=== PATIENT | male | born 1965 | race Caucasian/White ===

== ENCOUNTER 2020-04-27 16:06 | Inpatient (IN) | payer MEDICARE, MEDICAID ==
[~2020-04-27] VITALS: Ht 182.9 cm; Wt 79.8 kg
[~2020-04-27 16:06] MED LIST: ARIP5TAB8 PO; ASEN5TAB6 SL; DOCU-119 PO; ESOM40CA PO; FLUV50 PO; PSYL3.4P5 PO; TIOT185 IH; VITE400 PO
[2020-04-27] MEDS ORDERED: AMLO-258 PO (16:47)
[2020-04-27] MEDS ORDERED: HYDR-2924 PO (16:47)
[2020-04-27] MEDS ORDERED: CARV12 PO (16:47)
[2020-04-27] MEDS ORDERED: PANT-31 PO (16:47)
[2020-04-27] MEDS ORDERED: CLON0.2T PO (16:47)
[2020-04-27] MEDS ORDERED: LISI-662 PO (16:47)
[2020-04-27] MEDS ORDERED: ATOR10TA84 PO (16:47)
[2020-04-27 16:51] LABS: EOSINOPHILS % (AUTO) 2.8 % (1.0-6.0); LYMPHOCYTES # (AUTO) 1.4 K/uL (1.0-4.8); LYMPHOCYTES % (AUTO) 26.7 % (22.0-44.0); MEAN CORPUSCULAR HEMOGLOBIN 28.6 pg (26.0-34.0); MEAN CORPUSCULAR HGB CONC 33.3 G/dL (31.0-37.0); MEAN CORPUSCULAR VOLUME 86 fL (80-100); MONOCYTES # (AUTO) 0.5 K/uL (0.1-1.0); MONOCYTES % (AUTO) 9.7 % (2.0-9.0); NEUTROPHILS # (AUTO) 3.2 K/uL (1.8-7.7); NEUTROPHILS % (AUTO) 59.8 % (40.0-70.0); PLATELET COUNT (AUTO) 314 K/uL (150-450); RED CELL DISTRIBUTION WIDTH 16.3 % (11.5-14.5)
[2020-04-27 17:22] LABS: AMPHET/METH SCREEN,URINE NEGATIVE (NEGATIVE); BARBITURATE SCREEN, URINE NEGATIVE (NEGATIVE); BENZODIAZEPINES SCREEN,URINE NEGATIVE (NEGATIVE); CANNABINOID SCREEN,URINE NEGATIVE (NEGATIVE); COCAINE SCREEN,URINE NEGATIVE (NEGATIVE); METHADONE SCREEN, URINE NEGATIVE (NEGATIVE); OPIATE SCREEN,URINE NEGATIVE (NEGATIVE)
[2020-04-27 17:23] LABS: PHENCYCLIDINE SCREEN,URINE NEGATIVE (NEGATIVE)
[2020-04-27 17:36] LABS: ANION GAP 11 mmol/L (8-16); CALCIUM, TOTAL 9.8 mg/dL (8.8-10.5); CARBON DIOXIDE 27 mmol/L (22-29); CHLORIDE 98 mmol/L (98-107); CREATININE 0.99 mg/dL (0.60-1.30); GLOMERULAR FILTR. RATE CALC > 60 mL/min (>60); GLUCOSE,RANDOM 97 mg/dL (70-110); POTASSIUM 4.3 mmol/L (3.5-5.1); SODIUM SERUM 136 mmol/L (136-145); UREA NITROGEN, BLOOD 19 mg/dL (7-18)
[2020-04-27 17:43] LABS: ALANINE AMINOTRANSFERASE 25 U/L (12-78); ALBUMIN 4.4 g/dL (3.4-5.0); ALKALINE PHOSPHATASE 66 U/L (46-116); ASPARTATE AMINOTRANSFERASE 13 U/L (15-37); BILIRUBIN,TOTAL 0.5 mg/dL (0.1-1.0); TOTAL PROTEIN, SERUM 7.3 g/dL (6.4-8.2)
[2020-04-27] MEDS ORDERED: PSYL283P35 PO (20:13)
[2020-04-27] MEDS ORDERED: ZOLPIDEM TARTRATE 10 MG TABLET PO PRN (20:15)
[2020-04-27] MEDS ORDERED: HALOPERIDOL 5 MG TABLET PO PRN (20:15)
[2020-04-27 20:40] LABS: COVID AG,FIA SOURCE NASAL SWAB
[2020-04-27] MEDS: LORazepam 2 MG TABLET PO PRN (21:59)
[2020-04-28 06:28] LABS: CHOL/HDL RATIO 2.2 (4.2-7.3); CHOLESTEROL 139 mg/dL (131-200); HDL CHOLESTEROL 62 mg/dL (40-60); LDL CHOL (CALC.) 67 mg/dL (0-130); TRIGLYCERIDES 50 mg/dL (15-150)
[2020-04-28 06:46] LABS: APPEARANCE,URINE CLEAR (CLEAR); BILIRUBIN,URINE NEGATIVE (NEGATIVE); GLUCOSE, URINE (UA) NEGATIVE (NEGATIVE); KETONES,URINE NEGATIVE (NEGATIVE); LEUKOCYTE ESTERASE ,URINE NEGATIVE (NEGATIVE); NITRATE,URINE NEGATIVE (NEGATIVE); OCCULT BLOOD,URINE NEGATIVE (NEGATIVE); PROTEIN,URINE NEGATIVE (NEGATIVE)
[2020-04-28 11:40] VITALS: BP 145/105
[2020-04-28] MEDS ORDERED: PNEUMOCOCCAL VACCINE POLYVALENT 0.5 ML VIAL [PPSV23] IM ONE (11:45)
[2020-04-28] MEDS ORDERED: INFLUENZA VIRUS VACCINE QVS 2020-21 (6MO+)/PF 60 MCG/0.5 ML SYRINGE IM ONE (11:45)
[2020-04-28] MEDS: ATORVASTATIN CALCIUM 10 MG TABLET PO SCH (14:11)
[2020-04-28] MEDS: AmLODIPine BESYLATE 10 MG TABLET PO SCH (14:12)
[2020-04-28] MEDS: LISINOPRIL 20 MG TABLET PO SCH (14:12)
[2020-04-28 15:00] VITALS: BP 155/85
[2020-04-28 16:12] VITALS: BP 141/84
[2020-04-28] MEDS: CARVEDILOL 12.5 MG TABLET PO SCH (17:00)
[2020-04-29 01:31] VITALS: BP 135/82
[2020-04-29] MEDS: PANTOPRAZOLE SODIUM 40 MG DR TABLET PO SCH ×2 (06:35→09:59)
[2020-04-29 08:45] VITALS: BP 124/77
[2020-04-29] MEDS: LISINOPRIL 20 MG TABLET PO SCH ×2 (09:30→09:58)
[2020-04-29] MEDS: CARVEDILOL 12.5 MG TABLET PO SCH ×2 (09:30→09:59)
[2020-04-29] MEDS: ATORVASTATIN CALCIUM 10 MG TABLET PO SCH ×2 (09:30→09:58)
[2020-04-29] MEDS: AmLODIPine BESYLATE 10 MG TABLET PO SCH (09:58)
[2020-04-29] MEDS: PALIPERIDONE 3 MG ER TABLET PO SCH (12:00)
[2020-04-29] MEDS: ARIPiprazole 10 MG TABLET PO SCH (12:00)
[2020-04-29 16:38] VITALS: BP 125/81
[2020-04-30 03:20] VITALS: BP 121/68
[2020-04-30 08:40] VITALS: BP 125/86
[2020-04-30] MEDS: ARIPiprazole 10 MG TABLET PO SCH (09:32)
[2020-04-30] MEDS: CARVEDILOL 12.5 MG TABLET PO SCH ×2 (09:33→16:57)
[2020-04-30] MEDS: AmLODIPine BESYLATE 10 MG TABLET PO SCH (09:33)
[2020-04-30] MEDS: PALIPERIDONE 3 MG ER TABLET PO SCH (09:33)
[2020-04-30 17:11] VITALS: BP 125/70
[2020-05-01 00:30] VITALS: BP 130/77
[2020-05-01] MEDS: PANTOPRAZOLE SODIUM 40 MG DR TABLET PO SCH (06:41)
[2020-05-01] MEDS: ATORVASTATIN CALCIUM 10 MG TABLET PO SCH (08:50)
[2020-05-01] MEDS: ARIPiprazole 10 MG TABLET PO SCH (08:50)
[2020-05-01] MEDS: LISINOPRIL 20 MG TABLET PO SCH (08:50)
[2020-05-01 08:51] VITALS: BP 145/97
[2020-05-01] MEDS: AmLODIPine BESYLATE 10 MG TABLET PO SCH (08:51)
[2020-05-01] MEDS: CARVEDILOL 12.5 MG TABLET PO SCH ×2 (08:55→17:15)
[2020-05-01] MEDS: PALIPERIDONE 3 MG ER TABLET PO SCH (08:56)
[2020-05-01 16:12] VITALS: BP 130/65
[2020-05-01] MEDS: MAGNESIUM HYDROXIDE SUSPENSION 30 ML UDCUP PO PRN (21:15)
[2020-05-02 06:00] VITALS: BP 125/87
[2020-05-02] MEDS: PANTOPRAZOLE SODIUM 40 MG DR TABLET PO SCH (06:37)
[2020-05-02] MEDS: PALIPERIDONE 3 MG ER TABLET PO SCH (09:04)
[2020-05-02] MEDS: ATORVASTATIN CALCIUM 10 MG TABLET PO SCH (09:04)
[2020-05-02] MEDS: ARIPiprazole 10 MG TABLET PO SCH (09:04)
[2020-05-02] MEDS: AmLODIPine BESYLATE 10 MG TABLET PO SCH (09:04)
[2020-05-02] MEDS: CARVEDILOL 12.5 MG TABLET PO SCH ×2 (09:04→16:27)
[2020-05-02] MEDS: LISINOPRIL 20 MG TABLET PO SCH (09:05)
[2020-05-02 10:06] VITALS: BP 115/77
[2020-05-02 16:00] VITALS: BP 137/70
[2020-05-02 17:00] VITALS: BP 137/70
[2020-05-03] MEDS: MAGNESIUM HYDROXIDE SUSPENSION 30 ML UDCUP PO PRN (00:09)
[2020-05-03 02:34] VITALS: BP 117/73
[2020-05-03] MEDS: PANTOPRAZOLE SODIUM 40 MG DR TABLET PO SCH (07:02)
[2020-05-03] MEDS: LISINOPRIL 20 MG TABLET PO SCH (08:36)
[2020-05-03] MEDS: AmLODIPine BESYLATE 10 MG TABLET PO SCH (08:36)
[2020-05-03] MEDS: ARIPiprazole 10 MG TABLET PO SCH (08:36)
[2020-05-03] MEDS: ATORVASTATIN CALCIUM 10 MG TABLET PO SCH (08:36)
[2020-05-03] MEDS: CARVEDILOL 12.5 MG TABLET PO SCH ×2 (08:37→16:55)
[2020-05-03] MEDS: PALIPERIDONE 3 MG ER TABLET PO SCH (08:37)
[2020-05-03 08:38] VITALS: BP 137/82
[2020-05-03] MEDS ORDERED: BuPROPion HCL XL 150 MG ER TABLET PO ONE (11:45)
[2020-05-03 16:15] VITALS: BP 113/76
[2020-05-03] MEDS: ACETAMINOPHEN 325 MG TABLET PO PRN (20:03)
[2020-05-04 00:47] VITALS: BP 118/72
[2020-05-04] MEDS: PANTOPRAZOLE SODIUM 40 MG DR TABLET PO SCH (06:29)
[2020-05-04 08:10] VITALS: BP 126/80
[2020-05-04] MEDS: ARIPiprazole 10 MG TABLET PO SCH (08:57)
[2020-05-04] MEDS: ATORVASTATIN CALCIUM 10 MG TABLET PO SCH (08:57)
[2020-05-04] MEDS: BuPROPion HCL XL 150 MG ER TABLET PO SCH (08:57)
[2020-05-04] MEDS: AmLODIPine BESYLATE 10 MG TABLET PO SCH (08:57)
[2020-05-04] MEDS: PALIPERIDONE 3 MG ER TABLET PO SCH (08:57)
[2020-05-04] MEDS: LISINOPRIL 20 MG TABLET PO SCH (08:58)
[2020-05-04] MEDS: CARVEDILOL 12.5 MG TABLET PO SCH ×2 (08:59→16:36)
[2020-05-04 16:08] VITALS: BP 116/72
[2020-05-05 05:27] VITALS: BP 128/89
[2020-05-05] MEDS: PANTOPRAZOLE SODIUM 40 MG DR TABLET PO SCH (06:25)
[2020-05-05 08:25] VITALS: BP 126/89
[2020-05-05] MEDS: ATORVASTATIN CALCIUM 10 MG TABLET PO SCH (09:40)
[2020-05-05] MEDS: AmLODIPine BESYLATE 10 MG TABLET PO SCH (09:40)
[2020-05-05] MEDS: CARVEDILOL 12.5 MG TABLET PO SCH ×2 (09:40→16:34)
[2020-05-05] MEDS: LISINOPRIL 20 MG TABLET PO SCH (09:40)
[2020-05-05] MEDS: ARIPiprazole 10 MG TABLET PO SCH (09:46)
[2020-05-05] MEDS: BuPROPion HCL XL 150 MG ER TABLET PO SCH (09:46)
[2020-05-05] MEDS: PALIPERIDONE 3 MG ER TABLET PO SCH (09:46)
[2020-05-05 16:16] VITALS: BP 141/68
[2020-05-06 02:53] VITALS: BP 125/76
[2020-05-06] MEDS: PANTOPRAZOLE SODIUM 40 MG DR TABLET PO SCH (06:53)
[2020-05-06 08:21] VITALS: BP 154/90
[2020-05-06] MEDS: AmLODIPine BESYLATE 10 MG TABLET PO SCH (08:38)
[2020-05-06] MEDS: LISINOPRIL 20 MG TABLET PO SCH (08:38)
[2020-05-06] MEDS: PALIPERIDONE 3 MG ER TABLET PO SCH (08:39)
[2020-05-06] MEDS: CARVEDILOL 12.5 MG TABLET PO SCH ×2 (08:39→16:43)
[2020-05-06] MEDS: ATORVASTATIN CALCIUM 10 MG TABLET PO SCH (08:39)
[2020-05-06] MEDS: ARIPiprazole 10 MG TABLET PO SCH (08:39)
[2020-05-06] MEDS: BuPROPion HCL XL 150 MG ER TABLET PO SCH (08:40)
[2020-05-06 10:30] VITALS: BP 131/80
[2020-05-06 16:09] VITALS: BP 124/67
[2020-05-06] MEDS: OLANZapine 5 MG TABLET PO SCH (19:38)
[2020-05-06] MEDS: LORazepam 2 MG TABLET PO PRN (21:58)
[2020-05-07] MEDS: PANTOPRAZOLE SODIUM 40 MG DR TABLET PO SCH (06:28)
[2020-05-07 06:46] VITALS: BP 135/74
[2020-05-07 08:19] VITALS: BP 140/79
[2020-05-07] MEDS: OLANZapine 5 MG TABLET PO SCH ×2 (09:00→17:00)
[2020-05-07] MEDS: LISINOPRIL 20 MG TABLET PO SCH (10:17)
[2020-05-07] MEDS: CARVEDILOL 12.5 MG TABLET PO SCH ×2 (10:18→18:11)
[2020-05-07] MEDS: AmLODIPine BESYLATE 10 MG TABLET PO SCH (10:18)
[2020-05-07] MEDS: ATORVASTATIN CALCIUM 10 MG TABLET PO SCH (10:18)
[2020-05-07] MEDS: BuPROPion HCL XL 150 MG ER TABLET PO SCH (10:18)
[2020-05-07 17:02] VITALS: BP 141/71
[2020-05-08 01:52] VITALS: BP 128/95
[2020-05-08] MEDS: PANTOPRAZOLE SODIUM 40 MG DR TABLET PO SCH (06:41)
[2020-05-08 08:20] VITALS: BP 140/92
[2020-05-08] MEDS: AmLODIPine BESYLATE 10 MG TABLET PO SCH (09:41)
[2020-05-08] MEDS: LISINOPRIL 20 MG TABLET PO SCH (09:41)
[2020-05-08] MEDS: ATORVASTATIN CALCIUM 10 MG TABLET PO SCH (09:41)
[2020-05-08] MEDS: BuPROPion HCL XL 150 MG ER TABLET PO SCH (09:41)
[2020-05-08] MEDS: OLANZapine 5 MG TABLET PO SCH ×2 (09:41→16:58)
[2020-05-08] MEDS: CARVEDILOL 12.5 MG TABLET PO SCH ×2 (09:42→16:58)
[2020-05-08 19:03] VITALS: BP 123/75
[2020-05-08] MEDS: MAGNESIUM HYDROXIDE SUSPENSION 30 ML UDCUP PO PRN (19:45)
[2020-05-09 00:09] VITALS: BP 129/90
[2020-05-09] MEDS: LORazepam 2 MG TABLET PO PRN (00:20)
[2020-05-09] MEDS: PANTOPRAZOLE SODIUM 40 MG DR TABLET PO SCH (06:27)
[2020-05-09] MEDS: ATORVASTATIN CALCIUM 10 MG TABLET PO SCH (10:02)
[2020-05-09] MEDS: OLANZapine 5 MG TABLET PO SCH ×3 (10:03→20:54)
[2020-05-09] MEDS: CARVEDILOL 12.5 MG TABLET PO SCH ×2 (10:03→16:51)
[2020-05-09] MEDS: LISINOPRIL 20 MG TABLET PO SCH (10:03)
[2020-05-09] MEDS: BuPROPion HCL XL 150 MG ER TABLET PO SCH (10:03)
[2020-05-09] MEDS: AmLODIPine BESYLATE 10 MG TABLET PO SCH (10:03)
[2020-05-09 10:25] VITALS: BP 138/98
[2020-05-09 17:33] VITALS: BP 136/74
[2020-05-09] MEDS: MAGNESIUM HYDROXIDE SUSPENSION 30 ML UDCUP PO PRN (18:57)
[2020-05-10 00:15] VITALS: BP 123/62
[2020-05-10] MEDS: PANTOPRAZOLE SODIUM 40 MG DR TABLET PO SCH (06:40)
[2020-05-10 08:18] VITALS: BP 132/65
[2020-05-10] MEDS: ATORVASTATIN CALCIUM 10 MG TABLET PO SCH (09:31)
[2020-05-10] MEDS: CARVEDILOL 12.5 MG TABLET PO SCH ×2 (09:31→16:36)
[2020-05-10] MEDS: BuPROPion HCL XL 150 MG ER TABLET PO SCH (09:32)
[2020-05-10] MEDS: LISINOPRIL 20 MG TABLET PO SCH (09:32)
[2020-05-10] MEDS: OLANZapine 5 MG TABLET PO SCH ×2 (09:32→16:36)
[2020-05-10] MEDS: AmLODIPine BESYLATE 10 MG TABLET PO SCH (09:32)
[2020-05-10 16:08] VITALS: BP 124/69
[2020-05-11 00:22] VITALS: BP 105/69
[2020-05-11] MEDS: MAGNESIUM HYDROXIDE SUSPENSION 30 ML UDCUP PO PRN ×2 (02:56→20:58)
[2020-05-11] MEDS: PANTOPRAZOLE SODIUM 40 MG DR TABLET PO SCH (06:25)
[2020-05-11 08:14] VITALS: BP 141/95
[2020-05-11] MEDS: ATORVASTATIN CALCIUM 10 MG TABLET PO SCH (09:57)
[2020-05-11] MEDS: AmLODIPine BESYLATE 10 MG TABLET PO SCH (09:57)
[2020-05-11] MEDS: OLANZapine 5 MG TABLET PO SCH ×2 (09:57→16:50)
[2020-05-11] MEDS: LISINOPRIL 20 MG TABLET PO SCH (09:57)
[2020-05-11] MEDS: BuPROPion HCL XL 150 MG ER TABLET PO SCH (09:57)
[2020-05-11] MEDS: CARVEDILOL 12.5 MG TABLET PO SCH ×2 (09:58→16:50)
[2020-05-11 16:34] VITALS: BP 127/62
[2020-05-11] MEDS: MELATONIN 3 MG TABLET PO SCH (20:44)
[2020-05-12 00:31] VITALS: BP 133/71
[2020-05-12] MEDS: PANTOPRAZOLE SODIUM 40 MG DR TABLET PO SCH (06:26)
[2020-05-12 09:03] VITALS: BP 124/83
[2020-05-12] MEDS: OLANZapine 5 MG TABLET PO SCH ×2 (10:45→18:07)
[2020-05-12] MEDS: BuPROPion HCL XL 150 MG ER TABLET PO SCH (10:45)
[2020-05-12] MEDS: CARVEDILOL 12.5 MG TABLET PO SCH ×2 (10:45→19:00)
[2020-05-12] MEDS: ATORVASTATIN CALCIUM 10 MG TABLET PO SCH (10:45)
[2020-05-12] MEDS: LISINOPRIL 20 MG TABLET PO SCH (10:45)
[2020-05-12] MEDS: AmLODIPine BESYLATE 10 MG TABLET PO SCH (10:45)
[2020-05-12 16:21] VITALS: BP 104/62
[2020-05-12] MEDS: MELATONIN 3 MG TABLET PO SCH (21:18)
[2020-05-13 06:14] VITALS: BP 128/68
[2020-05-13] MEDS: PANTOPRAZOLE SODIUM 40 MG DR TABLET PO SCH (06:25)
[2020-05-13 08:28] VITALS: BP 139/89
[2020-05-13] MEDS: BuPROPion HCL XL 150 MG ER TABLET PO SCH (09:02)
[2020-05-13] MEDS: LISINOPRIL 20 MG TABLET PO SCH (09:03)
[2020-05-13] MEDS: ATORVASTATIN CALCIUM 10 MG TABLET PO SCH (09:03)
[2020-05-13] MEDS: CARVEDILOL 12.5 MG TABLET PO SCH ×2 (09:03→16:11)
[2020-05-13] MEDS: OLANZapine 5 MG TABLET PO SCH ×2 (09:03→16:11)
[2020-05-13] MEDS: AmLODIPine BESYLATE 10 MG TABLET PO SCH (09:38)
[2020-05-13 16:34] VITALS: BP 121/69
[2020-05-13] MEDS: MELATONIN 3 MG TABLET PO SCH (20:59)
[2020-05-13] MEDS: MAGNESIUM HYDROXIDE SUSPENSION 30 ML UDCUP PO PRN (21:00)
[2020-05-14] MEDS: PANTOPRAZOLE SODIUM 40 MG DR TABLET PO SCH (06:25)
[2020-05-14 08:53] VITALS: BP 142/84
[2020-05-14] MEDS: LISINOPRIL 20 MG TABLET PO SCH (09:53)
[2020-05-14] MEDS: AmLODIPine BESYLATE 10 MG TABLET PO SCH (09:54)
[2020-05-14] MEDS: ATORVASTATIN CALCIUM 10 MG TABLET PO SCH (09:54)
[2020-05-14] MEDS: BuPROPion HCL XL 150 MG ER TABLET PO SCH (09:54)
[2020-05-14] MEDS: CARVEDILOL 12.5 MG TABLET PO SCH ×2 (09:54→16:37)
[2020-05-14] MEDS: OLANZapine 5 MG TABLET PO SCH ×2 (09:54→16:37)
[2020-05-14 16:18] VITALS: BP 117/71
[2020-05-14] MEDS: MELATONIN 3 MG TABLET PO SCH (21:42)
[2020-05-14] MEDS: MAGNESIUM HYDROXIDE SUSPENSION 30 ML UDCUP PO PRN (22:27)
[2020-05-15 03:38] VITALS: BP 106/70
[2020-05-15] MEDS: PANTOPRAZOLE SODIUM 40 MG DR TABLET PO SCH (06:33)
[2020-05-15] MEDS: LISINOPRIL 20 MG TABLET PO SCH (08:44)
[2020-05-15] MEDS: ATORVASTATIN CALCIUM 10 MG TABLET PO SCH (08:44)
[2020-05-15] MEDS: CARVEDILOL 12.5 MG TABLET PO SCH ×2 (08:44→17:48)
[2020-05-15] MEDS: OLANZapine 5 MG TABLET PO SCH ×2 (08:44→17:48)
[2020-05-15] MEDS: AmLODIPine BESYLATE 10 MG TABLET PO SCH (08:44)
[2020-05-15] MEDS: BuPROPion HCL XL 150 MG ER TABLET PO SCH (08:44)
[2020-05-15 08:52] VITALS: BP 129/70
[2020-05-15 16:42] VITALS: BP 124/74
[2020-05-15] MEDS: MELATONIN 3 MG TABLET PO SCH (21:00)
[2020-05-16 04:08] VITALS: BP 128/70
[2020-05-16] MEDS: PANTOPRAZOLE SODIUM 40 MG DR TABLET PO SCH (06:58)
[2020-05-16] MEDS: OLANZapine 5 MG TABLET PO SCH ×2 (08:45→17:02)
[2020-05-16] MEDS: BuPROPion HCL XL 150 MG ER TABLET PO SCH (08:46)
[2020-05-16] MEDS: LISINOPRIL 20 MG TABLET PO SCH (08:46)
[2020-05-16] MEDS: CARVEDILOL 12.5 MG TABLET PO SCH ×2 (08:46→17:02)
[2020-05-16] MEDS: ATORVASTATIN CALCIUM 10 MG TABLET PO SCH (08:46)
[2020-05-16] MEDS: AmLODIPine BESYLATE 10 MG TABLET PO SCH (08:46)
[2020-05-16 08:48] VITALS: BP 124/83
[2020-05-16 16:04] VITALS: BP 135/72
[2020-05-16] MEDS: MAGNESIUM HYDROXIDE SUSPENSION 30 ML UDCUP PO PRN (16:11)
[2020-05-16] MEDS: MELATONIN 3 MG TABLET PO SCH (21:02)
[2020-05-17 00:37] VITALS: BP 119/75
[2020-05-17] MEDS: PANTOPRAZOLE SODIUM 40 MG DR TABLET PO SCH (06:27)
[2020-05-17 08:12] VITALS: BP 134/78
[2020-05-17] MEDS: ATORVASTATIN CALCIUM 10 MG TABLET PO SCH (09:14)
[2020-05-17] MEDS: AmLODIPine BESYLATE 10 MG TABLET PO SCH (09:14)
[2020-05-17] MEDS: LISINOPRIL 20 MG TABLET PO SCH (09:14)
[2020-05-17] MEDS: OLANZapine 5 MG TABLET PO SCH ×2 (09:14→16:09)
[2020-05-17] MEDS: BuPROPion HCL XL 150 MG ER TABLET PO SCH (09:14)
[2020-05-17] MEDS: CARVEDILOL 12.5 MG TABLET PO SCH ×2 (09:14→16:09)
[2020-05-17 16:06] VITALS: BP 110/62
[2020-05-17] MEDS: MAGNESIUM HYDROXIDE SUSPENSION 30 ML UDCUP PO PRN (21:13)
[2020-05-17] MEDS: MELATONIN 3 MG TABLET PO SCH (21:22)
[2020-05-18 00:01] VITALS: BP 121/69
[2020-05-18] MEDS: ACETAMINOPHEN 325 MG TABLET PO PRN ×2 (00:13→20:36)
[2020-05-18] MEDS: PANTOPRAZOLE SODIUM 40 MG DR TABLET PO SCH (06:19)
[2020-05-18 08:37] VITALS: BP 117/78
[2020-05-18] MEDS: CARVEDILOL 12.5 MG TABLET PO SCH ×2 (09:14→16:31)
[2020-05-18] MEDS: AmLODIPine BESYLATE 10 MG TABLET PO SCH (09:14)
[2020-05-18] MEDS: LISINOPRIL 20 MG TABLET PO SCH (09:14)
[2020-05-18] MEDS: BuPROPion HCL XL 150 MG ER TABLET PO SCH (09:14)
[2020-05-18] MEDS: OLANZapine 5 MG TABLET PO SCH ×2 (09:14→16:31)
[2020-05-18] MEDS: ATORVASTATIN CALCIUM 10 MG TABLET PO SCH (09:14)
[2020-05-18 16:20] VITALS: BP 118/70
[2020-05-18] MEDS: MELATONIN 3 MG TABLET PO SCH (21:23)
[2020-05-19 05:43] VITALS: BP 120/81
[2020-05-19] MEDS: PANTOPRAZOLE SODIUM 40 MG DR TABLET PO SCH (06:51)
[2020-05-19 08:21] VITALS: BP 100/65
[2020-05-19] MEDS: AmLODIPine BESYLATE 10 MG TABLET PO SCH ×2 (09:00→09:06)
[2020-05-19] MEDS: LISINOPRIL 20 MG TABLET PO SCH ×2 (09:00→09:06)
[2020-05-19] MEDS: CARVEDILOL 12.5 MG TABLET PO SCH ×3 (09:00→17:00)
[2020-05-19] MEDS: BuPROPion HCL XL 150 MG ER TABLET PO SCH (09:06)
[2020-05-19] MEDS: OLANZapine 5 MG TABLET PO SCH ×2 (09:06→16:38)
[2020-05-19] MEDS: ATORVASTATIN CALCIUM 10 MG TABLET PO SCH (09:07)
[2020-05-19] MEDS: MAGNESIUM HYDROXIDE SUSPENSION 30 ML UDCUP PO PRN (11:24)
[2020-05-19 16:10] VITALS: BP 102/60
[2020-05-19] MEDS: ACETAMINOPHEN 325 MG TABLET PO PRN (16:13)
[2020-05-19] MEDS: MELATONIN 3 MG TABLET PO SCH (21:08)
[2020-05-20 01:14] VITALS: BP 117/74
[2020-05-20] MEDS: PANTOPRAZOLE SODIUM 40 MG DR TABLET PO SCH (06:12)
[2020-05-20] MEDS: AmLODIPine BESYLATE 10 MG TABLET PO SCH (08:18)
[2020-05-20] MEDS: ATORVASTATIN CALCIUM 10 MG TABLET PO SCH (08:18)
[2020-05-20] MEDS: BuPROPion HCL XL 150 MG ER TABLET PO SCH (08:18)
[2020-05-20] MEDS: LISINOPRIL 20 MG TABLET PO SCH (08:18)
[2020-05-20] MEDS: CARVEDILOL 12.5 MG TABLET PO SCH ×2 (08:18→17:00)
[2020-05-20 08:20] VITALS: BP 130/85
[2020-05-20] MEDS: OLANZapine 5 MG TABLET PO SCH ×2 (08:21→17:33)
[2020-05-20] MEDS: CEPHALEXIN MONOHYDRATE 500 MG CAPSULE PO SCH ×2 (13:35→16:39)
[2020-05-20] MEDS: BACITRACIN 28 GM OINTMENT TP SCH (16:29)
[2020-05-20] MEDS: SULFAMETHOX/TRIMETH DS 800-160 MG/TABLET PO SCH (16:39)
[2020-05-20 17:15] VITALS: BP 103/58
[2020-05-20] MEDS: MELATONIN 3 MG TABLET PO SCH (22:05)
[2020-05-21 00:09] VITALS: BP 116/63
[2020-05-21] MEDS: PANTOPRAZOLE SODIUM 40 MG DR TABLET PO SCH (06:16)
[2020-05-21 08:43] VITALS: BP 117/71
[2020-05-21] MEDS: CARVEDILOL 12.5 MG TABLET PO SCH ×2 (09:00→16:15)
[2020-05-21] MEDS: OLANZapine 5 MG TABLET PO SCH ×2 (09:00→16:15)
[2020-05-21] MEDS: CEPHALEXIN MONOHYDRATE 500 MG CAPSULE PO SCH ×3 (09:20→16:11)
[2020-05-21] MEDS: SULFAMETHOX/TRIMETH DS 800-160 MG/TABLET PO SCH ×2 (09:21→16:11)
[2020-05-21] MEDS: LISINOPRIL 20 MG TABLET PO SCH (09:26)
[2020-05-21] MEDS: AmLODIPine BESYLATE 10 MG TABLET PO SCH (09:27)
[2020-05-21] MEDS: BuPROPion HCL XL 150 MG ER TABLET PO SCH (09:27)
[2020-05-21] MEDS: ATORVASTATIN CALCIUM 10 MG TABLET PO SCH (09:27)
[2020-05-21] MEDS: BACITRACIN 28 GM OINTMENT TP SCH ×2 (09:32→16:15)
[2020-05-21] MEDS: MAGNESIUM HYDROXIDE SUSPENSION 30 ML UDCUP PO PRN (09:48)
[2020-05-21 16:26] VITALS: BP 128/76
[2020-05-21] MEDS: MELATONIN 3 MG TABLET PO SCH (20:23)
[2020-05-22 00:35] VITALS: BP 125/72
[2020-05-22] MEDS: MAGNESIUM HYDROXIDE SUSPENSION 30 ML UDCUP PO PRN ×2 (06:36→20:01)
[2020-05-22] MEDS: PANTOPRAZOLE SODIUM 40 MG DR TABLET PO SCH (06:41)
[2020-05-22 07:44] LABS: COVID AG,FIA SOURCE NASAL SWAB
[2020-05-22] MEDS ORDERED: BACTDSB PO (08:17)
[2020-05-22] MEDS ORDERED: CEPH-582 PO (08:18)
[2020-05-22] MEDS ORDERED: OLAN5TAB2 PO (08:20)
[2020-05-22] MEDS ORDERED: BACI30OI10 TP (08:24)
[2020-05-22] MEDS ORDERED: MELA1TAB28 PO (08:24)
[2020-05-22] MEDS ORDERED: PANT-31 PO (08:25)
[2020-05-22] MEDS ORDERED: BUPR-93 PO (08:26)
[2020-05-22] MEDS ORDERED: MELA1TAB8 PO (08:27)
[2020-05-22] MEDS: BuPROPion HCL XL 150 MG ER TABLET PO SCH (08:33)
[2020-05-22] MEDS: SULFAMETHOX/TRIMETH DS 800-160 MG/TABLET PO SCH ×2 (08:33→16:13)
[2020-05-22] MEDS: LISINOPRIL 20 MG TABLET PO SCH (08:34)
[2020-05-22] MEDS: CEPHALEXIN MONOHYDRATE 500 MG CAPSULE PO SCH ×3 (08:34→16:13)
[2020-05-22] MEDS: ATORVASTATIN CALCIUM 10 MG TABLET PO SCH (08:34)
[2020-05-22] MEDS: AmLODIPine BESYLATE 10 MG TABLET PO SCH (08:34)
[2020-05-22] MEDS ORDERED: MELA3TAB89 PO (08:36)
[2020-05-22 08:41] VITALS: BP 119/72
[2020-05-22] MEDS: OLANZapine 5 MG TABLET PO SCH ×2 (09:00→16:14)
[2020-05-22] MEDS: CARVEDILOL 12.5 MG TABLET PO SCH ×2 (09:00→16:14)
[2020-05-22] MEDS: BACITRACIN 28 GM OINTMENT TP SCH ×2 (09:08→16:14)
[2020-05-22 16:53] VITALS: BP 126/77
[2020-05-22] MEDS: MELATONIN 3 MG TABLET PO SCH (21:04)
[2020-05-23] MEDS: PANTOPRAZOLE SODIUM 40 MG DR TABLET PO SCH (06:26)
[2020-05-23 06:28] VITALS: BP 120/75
[2020-05-23] MEDS: AmLODIPine BESYLATE 10 MG TABLET PO SCH (08:28)
[2020-05-23] MEDS: LISINOPRIL 20 MG TABLET PO SCH (08:28)
[2020-05-23] MEDS: CEPHALEXIN MONOHYDRATE 500 MG CAPSULE PO SCH ×3 (08:28→17:51)
[2020-05-23] MEDS: ATORVASTATIN CALCIUM 10 MG TABLET PO SCH (08:28)
[2020-05-23] MEDS: CARVEDILOL 12.5 MG TABLET PO SCH ×2 (08:29→17:51)
[2020-05-23] MEDS: SULFAMETHOX/TRIMETH DS 800-160 MG/TABLET PO SCH ×2 (08:29→17:51)
[2020-05-23] MEDS: BuPROPion HCL XL 150 MG ER TABLET PO SCH (08:29)
[2020-05-23] MEDS: OLANZapine 5 MG TABLET PO SCH ×2 (08:29→17:51)
[2020-05-23 08:34] VITALS: BP 125/83
[2020-05-23] MEDS: BACITRACIN 28 GM OINTMENT TP SCH ×2 (08:35→17:51)
[2020-05-23 16:24] VITALS: BP 106/58
[2020-05-23] MEDS: MELATONIN 3 MG TABLET PO SCH (21:00)
[2020-05-24 04:04] VITALS: BP 105/63
[2020-05-24] MEDS: PANTOPRAZOLE SODIUM 40 MG DR TABLET PO SCH (06:32)
[2020-05-24 08:31] VITALS: BP 104/60
[2020-05-24] MEDS: CEPHALEXIN MONOHYDRATE 500 MG CAPSULE PO SCH ×3 (08:49→17:22)
[2020-05-24] MEDS: CARVEDILOL 12.5 MG TABLET PO SCH ×2 (08:49→17:23)
[2020-05-24] MEDS: SULFAMETHOX/TRIMETH DS 800-160 MG/TABLET PO SCH ×2 (08:49→17:23)
[2020-05-24] MEDS: LISINOPRIL 20 MG TABLET PO SCH (08:49)
[2020-05-24] MEDS: OLANZapine 5 MG TABLET PO SCH ×3 (08:50→17:22)
[2020-05-24] MEDS: BuPROPion HCL XL 150 MG ER TABLET PO SCH (08:50)
[2020-05-24] MEDS: AmLODIPine BESYLATE 10 MG TABLET PO SCH (08:50)
[2020-05-24] MEDS: ATORVASTATIN CALCIUM 10 MG TABLET PO SCH (08:50)
[2020-05-24] MEDS: BACITRACIN 28 GM OINTMENT TP SCH ×2 (09:05→17:23)
[2020-05-24 16:41] VITALS: BP_SYST 100; BP_SYST 106; BP_DIAS 76
[2020-05-24] MEDS: MELATONIN 3 MG TABLET PO SCH (20:44)
[2020-05-25 05:27] VITALS: BP 121/68
[2020-05-25] MEDS: PANTOPRAZOLE SODIUM 40 MG DR TABLET PO SCH (06:26)
[2020-05-25 08:08] VITALS: BP 131/76
[2020-05-25] MEDS: CEPHALEXIN MONOHYDRATE 500 MG CAPSULE PO SCH ×3 (09:17→16:42)
[2020-05-25] MEDS: AmLODIPine BESYLATE 10 MG TABLET PO SCH (09:17)
[2020-05-25] MEDS: SULFAMETHOX/TRIMETH DS 800-160 MG/TABLET PO SCH ×2 (09:17→16:41)
[2020-05-25] MEDS: CARVEDILOL 12.5 MG TABLET PO SCH ×2 (09:17→16:41)
[2020-05-25] MEDS: LISINOPRIL 20 MG TABLET PO SCH (09:17)
[2020-05-25] MEDS: BuPROPion HCL XL 150 MG ER TABLET PO SCH (09:17)
[2020-05-25] MEDS: ATORVASTATIN CALCIUM 10 MG TABLET PO SCH (09:17)
[2020-05-25] MEDS: OLANZapine 5 MG TABLET PO SCH ×2 (09:17→16:41)
[2020-05-25] MEDS: BACITRACIN 28 GM OINTMENT TP SCH ×2 (09:19→16:42)
[2020-05-25 16:21] VITALS: BP 107/66
[2020-05-25] MEDS: MELATONIN 3 MG TABLET PO SCH (20:16)
[2020-05-26 00:14] VITALS: BP 110/71
[2020-05-26] MEDS: PANTOPRAZOLE SODIUM 40 MG DR TABLET PO SCH (06:16)
[2020-05-26 08:45] VITALS: BP 120/76
[2020-05-26] MEDS: CEPHALEXIN MONOHYDRATE 500 MG CAPSULE PO SCH ×3 (09:05→16:29)
[2020-05-26] MEDS: SULFAMETHOX/TRIMETH DS 800-160 MG/TABLET PO SCH ×2 (09:05→16:29)
[2020-05-26] MEDS: CARVEDILOL 12.5 MG TABLET PO SCH ×3 (09:05→16:53)
[2020-05-26] MEDS: OLANZapine 5 MG TABLET PO SCH ×3 (09:05→16:52)
[2020-05-26] MEDS: LISINOPRIL 20 MG TABLET PO SCH (09:05)
[2020-05-26] MEDS: BuPROPion HCL XL 150 MG ER TABLET PO SCH (09:05)
[2020-05-26] MEDS: AmLODIPine BESYLATE 10 MG TABLET PO SCH (09:05)
[2020-05-26] MEDS: BACITRACIN 28 GM OINTMENT TP SCH ×2 (09:05→16:34)
[2020-05-26] MEDS: ATORVASTATIN CALCIUM 10 MG TABLET PO SCH (09:05)
[2020-05-26] MEDS: MAGNESIUM HYDROXIDE SUSPENSION 30 ML UDCUP PO PRN (12:25)
[2020-05-26 16:30] VITALS: BP 105/63
[2020-05-26] MEDS: MELATONIN 3 MG TABLET PO SCH (20:25)
[2020-05-27 04:43] VITALS: BP 101/62
[2020-05-27] MEDS: PANTOPRAZOLE SODIUM 40 MG DR TABLET PO SCH (06:25)
[2020-05-27 08:28] VITALS: BP 128/75
[2020-05-27] MEDS: CEPHALEXIN MONOHYDRATE 500 MG CAPSULE PO SCH ×3 (08:57→16:37)
[2020-05-27] MEDS: SULFAMETHOX/TRIMETH DS 800-160 MG/TABLET PO SCH ×2 (08:57→16:37)
[2020-05-27] MEDS: LISINOPRIL 20 MG TABLET PO SCH (08:57)
[2020-05-27] MEDS: AmLODIPine BESYLATE 10 MG TABLET PO SCH (08:58)
[2020-05-27] MEDS: ATORVASTATIN CALCIUM 10 MG TABLET PO SCH (08:58)
[2020-05-27] MEDS: BuPROPion HCL XL 150 MG ER TABLET PO SCH (08:59)
[2020-05-27] MEDS: CARVEDILOL 12.5 MG TABLET PO SCH ×2 (09:02→16:37)
[2020-05-27] MEDS: OLANZapine 5 MG TABLET PO SCH ×2 (09:02→16:37)
[2020-05-27] MEDS: BACITRACIN 28 GM OINTMENT TP SCH ×2 (09:55→20:37)
[2020-05-27 18:16] VITALS: BP 116/78
[2020-05-27] MEDS: MELATONIN 3 MG TABLET PO SCH (20:37)
[2020-05-28] MEDS: ACETAMINOPHEN 325 MG TABLET PO PRN (03:16)
[2020-05-28 03:18] VITALS: BP 109/77
[2020-05-28] MEDS: PANTOPRAZOLE SODIUM 40 MG DR TABLET PO SCH (06:44)
[2020-05-28 08:12] VITALS: BP 116/70
[2020-05-28] MEDS: LISINOPRIL 20 MG TABLET PO SCH (09:30)
[2020-05-28] MEDS: BACITRACIN 28 GM OINTMENT TP SCH ×2 (09:31→16:32)
[2020-05-28] MEDS: ATORVASTATIN CALCIUM 10 MG TABLET PO SCH (09:31)
[2020-05-28] MEDS: CEPHALEXIN MONOHYDRATE 500 MG CAPSULE PO SCH ×3 (09:31→16:30)
[2020-05-28] MEDS: CARVEDILOL 12.5 MG TABLET PO SCH ×2 (09:31→16:37)
[2020-05-28] MEDS: BuPROPion HCL XL 150 MG ER TABLET PO SCH (09:31)
[2020-05-28] MEDS: SULFAMETHOX/TRIMETH DS 800-160 MG/TABLET PO SCH ×2 (09:31→16:30)
[2020-05-28] MEDS: OLANZapine 5 MG TABLET PO SCH ×2 (09:31→16:32)
[2020-05-28] MEDS: AmLODIPine BESYLATE 10 MG TABLET PO SCH (09:31)
[2020-05-28] MEDS: MAGNESIUM HYDROXIDE SUSPENSION 30 ML UDCUP PO PRN (11:21)
[2020-05-28 16:09] VITALS: BP 101/59
[2020-05-28] MEDS: MELATONIN 3 MG TABLET PO SCH (20:36)
[2020-05-29 06:27] VITALS: BP 124/70
[2020-05-29] MEDS: PANTOPRAZOLE SODIUM 40 MG DR TABLET PO SCH (06:59)
[2020-05-29 08:10] VITALS: BP 106/61
[2020-05-29] MEDS: CEPHALEXIN MONOHYDRATE 500 MG CAPSULE PO SCH ×3 (09:12→16:26)
[2020-05-29] MEDS: SULFAMETHOX/TRIMETH DS 800-160 MG/TABLET PO SCH ×2 (09:12→16:26)
[2020-05-29] MEDS: CARVEDILOL 12.5 MG TABLET PO SCH ×2 (09:12→16:26)
[2020-05-29] MEDS: AmLODIPine BESYLATE 10 MG TABLET PO SCH (09:13)
[2020-05-29] MEDS: ATORVASTATIN CALCIUM 10 MG TABLET PO SCH (09:13)
[2020-05-29] MEDS: OLANZapine 5 MG TABLET PO SCH ×2 (09:13→09:40)
[2020-05-29] MEDS: BuPROPion HCL XL 150 MG ER TABLET PO SCH (09:14)
[2020-05-29] MEDS: LISINOPRIL 20 MG TABLET PO SCH (09:14)
[2020-05-29] MEDS: BACITRACIN 28 GM OINTMENT TP SCH ×2 (09:19→16:26)
[2020-05-29 10:12] VITALS: BP 110/67
[2020-05-29 16:22] VITALS: BP 139/82
[2020-05-29] MEDS: MELATONIN 3 MG TABLET PO SCH (20:19)
[2020-05-30 00:17] VITALS: BP 130/81
[2020-05-30] MEDS: PANTOPRAZOLE SODIUM 40 MG DR TABLET PO SCH (05:51)
[2020-05-30 08:11] VITALS: BP 117/70
[2020-05-30] MEDS: BuPROPion HCL XL 150 MG ER TABLET PO SCH (08:13)
[2020-05-30] MEDS: OLANZapine 5 MG TABLET PO SCH ×3 (08:13→17:39)
[2020-05-30] MEDS: ATORVASTATIN CALCIUM 10 MG TABLET PO SCH (08:13)
[2020-05-30] MEDS: LISINOPRIL 20 MG TABLET PO SCH (08:13)
[2020-05-30] MEDS: AmLODIPine BESYLATE 10 MG TABLET PO SCH (08:14)
[2020-05-30] MEDS: CARVEDILOL 12.5 MG TABLET PO SCH ×3 (08:15→17:00)
[2020-05-30] MEDS: BACITRACIN 28 GM OINTMENT TP SCH (08:15)
[2020-05-30] MEDS: SULFAMETHOX/TRIMETH DS 800-160 MG/TABLET PO SCH (08:16)
[2020-05-30] MEDS: CEPHALEXIN MONOHYDRATE 500 MG CAPSULE PO SCH (08:16)
[2020-05-30 17:03] VITALS: BP 97/60
[2020-05-30 17:25] VITALS: BP 106/66
[2020-05-30] MEDS: MELATONIN 3 MG TABLET PO SCH (21:00)
[2020-05-31 04:37] VITALS: BP 110/60
[2020-05-31] MEDS: PANTOPRAZOLE SODIUM 40 MG DR TABLET PO SCH (06:56)
[2020-05-31 08:26] VITALS: BP 134/67
[2020-05-31] MEDS: AmLODIPine BESYLATE 10 MG TABLET PO SCH (08:53)
[2020-05-31] MEDS: BuPROPion HCL XL 150 MG ER TABLET PO SCH (08:54)
[2020-05-31] MEDS: ATORVASTATIN CALCIUM 10 MG TABLET PO SCH (08:54)
[2020-05-31] MEDS: LISINOPRIL 20 MG TABLET PO SCH (08:54)
[2020-05-31] MEDS: OLANZapine 5 MG TABLET PO SCH ×2 (09:39→17:25)
[2020-05-31] MEDS: CARVEDILOL 12.5 MG TABLET PO SCH ×2 (09:39→17:00)
[2020-05-31 16:28] VITALS: BP 106/59
[2020-05-31] MEDS: MELATONIN 3 MG TABLET PO SCH (21:33)
[2020-06-01 00:50] VITALS: BP 100/63
[2020-06-01] MEDS: PANTOPRAZOLE SODIUM 40 MG DR TABLET PO SCH (06:23)
[2020-06-01 08:09] VITALS: BP 133/63
[2020-06-01] MEDS: BuPROPion HCL XL 150 MG ER TABLET PO SCH (08:50)
[2020-06-01] MEDS: ATORVASTATIN CALCIUM 10 MG TABLET PO SCH (08:50)
[2020-06-01] MEDS: LISINOPRIL 20 MG TABLET PO SCH (08:50)
[2020-06-01] MEDS: AmLODIPine BESYLATE 10 MG TABLET PO SCH (08:50)
[2020-06-01] MEDS: OLANZapine 5 MG TABLET PO SCH (08:50)
[2020-06-01] MEDS: CARVEDILOL 12.5 MG TABLET PO SCH (08:56)
[2020-06-01 16:27] VITALS: BP 116/62
[2020-06-01] MEDS: CARVEDILOL 6.25 MG TABLET PO SCH (17:01)
[2020-06-01] MEDS: MELATONIN 3 MG TABLET PO SCH (21:16)
[2020-06-02 00:40] VITALS: BP 104/59
[2020-06-02] MEDS: PANTOPRAZOLE SODIUM 40 MG DR TABLET PO SCH (06:26)
[2020-06-02 08:40] VITALS: BP 117/69
[2020-06-02] MEDS: BuPROPion HCL XL 150 MG ER TABLET PO SCH (09:08)
[2020-06-02] MEDS: LISINOPRIL 20 MG TABLET PO SCH (09:08)
[2020-06-02] MEDS: ATORVASTATIN CALCIUM 10 MG TABLET PO SCH (09:08)
[2020-06-02] MEDS: CARVEDILOL 6.25 MG TABLET PO SCH (09:08)
[2020-06-02] MEDS: AmLODIPine BESYLATE 10 MG TABLET PO SCH (09:08)
[2020-06-02 16:45] VITALS: BP 110/70
[2020-06-02] MEDS ORDERED: CARVEDILOL 6.25 MG TABLET PO SCH (17:00)
[2020-06-02] MEDS: MELATONIN 3 MG TABLET PO SCH (20:43)
[2020-06-03 01:50] VITALS: BP 112/71
[2020-06-03] MEDS: PANTOPRAZOLE SODIUM 40 MG DR TABLET PO SCH (07:05)
[2020-06-03] MEDS: CARVEDILOL 3.125 MG TABLET PO SCH ×2 (07:05→16:08)
[2020-06-03] MEDS: ATORVASTATIN CALCIUM 10 MG TABLET PO SCH (08:23)
[2020-06-03] MEDS: AmLODIPine BESYLATE 10 MG TABLET PO SCH (08:23)
[2020-06-03] MEDS: BuPROPion HCL XL 150 MG ER TABLET PO SCH (08:24)
[2020-06-03] MEDS: LISINOPRIL 20 MG TABLET PO SCH (08:24)
[2020-06-03 08:33] VITALS: BP 128/72
[2020-06-03 16:25] VITALS: BP 137/88
[2020-06-03] MEDS: MELATONIN 3 MG TABLET PO SCH (20:48)
[2020-06-04 00:47] VITALS: BP 134/90
[2020-06-04] MEDS: PANTOPRAZOLE SODIUM 40 MG DR TABLET PO SCH (06:24)
[2020-06-04] MEDS: CARVEDILOL 3.125 MG TABLET PO SCH ×2 (06:48→18:13)
[2020-06-04 08:33] VITALS: BP 133/79
[2020-06-04] MEDS: ATORVASTATIN CALCIUM 10 MG TABLET PO SCH (08:34)
[2020-06-04] MEDS: BuPROPion HCL XL 150 MG ER TABLET PO SCH (08:34)
[2020-06-04] MEDS: AmLODIPine BESYLATE 10 MG TABLET PO SCH (08:34)
[2020-06-04] MEDS: LISINOPRIL 20 MG TABLET PO SCH (08:34)
[2020-06-04] MEDS: MAGNESIUM HYDROXIDE SUSPENSION 30 ML UDCUP PO PRN (08:37)
[2020-06-04 17:30] VITALS: BP 142/86
[2020-06-04] MEDS: ACETAMINOPHEN 325 MG TABLET PO PRN (19:34)
[2020-06-04] MEDS: MELATONIN 3 MG TABLET PO SCH (21:31)
[2020-06-05 02:22] VITALS: BP 126/82
[2020-06-05] MEDS: CARVEDILOL 3.125 MG TABLET PO SCH ×2 (07:18→16:33)
[2020-06-05] MEDS: PANTOPRAZOLE SODIUM 40 MG DR TABLET PO SCH (07:18)
[2020-06-05 08:27] VITALS: BP 127/73
[2020-06-05] MEDS: ATORVASTATIN CALCIUM 10 MG TABLET PO SCH (08:53)
[2020-06-05] MEDS: AmLODIPine BESYLATE 10 MG TABLET PO SCH (08:53)
[2020-06-05] MEDS: LISINOPRIL 20 MG TABLET PO SCH (08:54)
[2020-06-05] MEDS: BuPROPion HCL XL 150 MG ER TABLET PO SCH (08:54)
[2020-06-05 16:00] VITALS: BP 129/72
[2020-06-05] MEDS: MELATONIN 3 MG TABLET PO SCH (20:59)
[2020-06-06 01:22] VITALS: BP 130/81
[2020-06-06] MEDS: CARVEDILOL 3.125 MG TABLET PO SCH ×2 (06:19→16:37)
[2020-06-06] MEDS: PANTOPRAZOLE SODIUM 40 MG DR TABLET PO SCH (06:19)
[2020-06-06 08:24] VITALS: BP 124/78
[2020-06-06] MEDS: BuPROPion HCL XL 150 MG ER TABLET PO SCH (09:53)
[2020-06-06] MEDS: LISINOPRIL 20 MG TABLET PO SCH (09:53)
[2020-06-06] MEDS: AmLODIPine BESYLATE 10 MG TABLET PO SCH (09:54)
[2020-06-06] MEDS: ATORVASTATIN CALCIUM 10 MG TABLET PO SCH (09:54)
[2020-06-06 16:18] VITALS: BP 129/84
[2020-06-06] MEDS: MELATONIN 3 MG TABLET PO SCH (21:08)
[2020-06-07 00:47] VITALS: BP 100/60
[2020-06-07] MEDS: PANTOPRAZOLE SODIUM 40 MG DR TABLET PO SCH (06:16)
[2020-06-07] MEDS: CARVEDILOL 3.125 MG TABLET PO SCH ×2 (06:16→17:00)
[2020-06-07 08:37] VITALS: BP 127/81
[2020-06-07] MEDS: BuPROPion HCL XL 150 MG ER TABLET PO SCH (09:24)
[2020-06-07] MEDS: AmLODIPine BESYLATE 10 MG TABLET PO SCH (09:24)
[2020-06-07] MEDS: LISINOPRIL 20 MG TABLET PO SCH (09:24)
[2020-06-07] MEDS: ATORVASTATIN CALCIUM 10 MG TABLET PO SCH (09:24)
[2020-06-07 16:21] VITALS: BP 97/61
[2020-06-07] MEDS: MELATONIN 3 MG TABLET PO SCH (20:50)
[2020-06-08 00:32] VITALS: BP 101/69
[2020-06-08] MEDS: PANTOPRAZOLE SODIUM 40 MG DR TABLET PO SCH (06:30)
[2020-06-08] MEDS: CARVEDILOL 3.125 MG TABLET PO SCH ×2 (06:30→16:10)
[2020-06-08 08:29] VITALS: BP 114/82
[2020-06-08] MEDS: LISINOPRIL 20 MG TABLET PO SCH (08:49)
[2020-06-08] MEDS: AmLODIPine BESYLATE 10 MG TABLET PO SCH (08:49)
[2020-06-08] MEDS: ATORVASTATIN CALCIUM 10 MG TABLET PO SCH (08:51)
[2020-06-08] MEDS: BuPROPion HCL XL 150 MG ER TABLET PO SCH (08:51)
[2020-06-08 17:27] VITALS: BP 116/72
[2020-06-08] MEDS: MELATONIN 3 MG TABLET PO SCH (21:12)
[2020-06-09 04:53] VITALS: BP 138/86
[2020-06-09] MEDS: PANTOPRAZOLE SODIUM 40 MG DR TABLET PO SCH (06:32)
[2020-06-09] MEDS: CARVEDILOL 3.125 MG TABLET PO SCH ×2 (06:53→16:36)
[2020-06-09 08:41] VITALS: BP 153/96
[2020-06-09] MEDS: LISINOPRIL 20 MG TABLET PO SCH (09:27)
[2020-06-09] MEDS: BuPROPion HCL XL 150 MG ER TABLET PO SCH (09:27)
[2020-06-09] MEDS: AmLODIPine BESYLATE 10 MG TABLET PO SCH (09:27)
[2020-06-09] MEDS: ATORVASTATIN CALCIUM 10 MG TABLET PO SCH (09:27)
[2020-06-09 16:14] VITALS: BP 116/72
[2020-06-09] MEDS: MELATONIN 3 MG TABLET PO SCH (20:52)
[2020-06-10 00:21] VITALS: BP 118/73
[2020-06-10] MEDS: PANTOPRAZOLE SODIUM 40 MG DR TABLET PO SCH (06:47)
[2020-06-10] MEDS: CARVEDILOL 3.125 MG TABLET PO SCH ×2 (06:48→16:26)
[2020-06-10] MEDS: MAGNESIUM HYDROXIDE SUSPENSION 30 ML UDCUP PO PRN (06:50)
[2020-06-10 08:43] VITALS: BP 109/76
[2020-06-10] MEDS: LISINOPRIL 20 MG TABLET PO SCH (09:39)
[2020-06-10] MEDS: BuPROPion HCL XL 150 MG ER TABLET PO SCH (09:39)
[2020-06-10] MEDS: ATORVASTATIN CALCIUM 10 MG TABLET PO SCH (09:39)
[2020-06-10] MEDS: AmLODIPine BESYLATE 10 MG TABLET PO SCH (09:39)
[2020-06-10 16:14] VITALS: BP 123/71
[2020-06-10] MEDS: MELATONIN 3 MG TABLET PO SCH (21:41)
[2020-06-11 00:37] VITALS: BP 129/71
[2020-06-11] MEDS: PANTOPRAZOLE SODIUM 40 MG DR TABLET PO SCH (06:31)
[2020-06-11] MEDS: CARVEDILOL 3.125 MG TABLET PO SCH ×2 (06:47→16:38)
[2020-06-11 08:52] VITALS: BP 133/92
[2020-06-11] MEDS: LISINOPRIL 20 MG TABLET PO SCH (10:18)
[2020-06-11] MEDS: BuPROPion HCL XL 150 MG ER TABLET PO SCH (10:18)
[2020-06-11] MEDS: AmLODIPine BESYLATE 10 MG TABLET PO SCH (10:18)
[2020-06-11] MEDS: ATORVASTATIN CALCIUM 10 MG TABLET PO SCH (10:18)
[2020-06-11 16:47] VITALS: BP 152/89
[2020-06-11] MEDS: MELATONIN 3 MG TABLET PO SCH (21:29)
[2020-06-11 21:30] VITALS: BP 110/71
[2020-06-11] MEDS: ACETAMINOPHEN 325 MG TABLET PO PRN (21:30)
[2020-06-12 00:23] VITALS: BP 100/62
[2020-06-12 06:55] VITALS: BP 112/73
[2020-06-12] MEDS: PANTOPRAZOLE SODIUM 40 MG DR TABLET PO SCH (06:57)
[2020-06-12] MEDS: CARVEDILOL 3.125 MG TABLET PO SCH ×2 (06:57→16:46)
[2020-06-12 08:10] VITALS: BP 145/88
[2020-06-12] MEDS: AmLODIPine BESYLATE 10 MG TABLET PO SCH (10:15)
[2020-06-12] MEDS: LISINOPRIL 20 MG TABLET PO SCH (10:15)
[2020-06-12] MEDS: ATORVASTATIN CALCIUM 10 MG TABLET PO SCH (10:15)
[2020-06-12] MEDS: BuPROPion HCL XL 150 MG ER TABLET PO SCH (10:15)
[2020-06-12 16:14] VITALS: BP 106/72
[2020-06-12] MEDS: MELATONIN 3 MG TABLET PO SCH (21:27)
[2020-06-13 01:09] VITALS: BP 122/77
[2020-06-13] MEDS: PANTOPRAZOLE SODIUM 40 MG DR TABLET PO SCH (06:43)
[2020-06-13] MEDS: CARVEDILOL 3.125 MG TABLET PO SCH ×2 (06:52→16:55)
[2020-06-13 08:09] VITALS: BP 116/80
[2020-06-13] MEDS: ATORVASTATIN CALCIUM 10 MG TABLET PO SCH (10:36)
[2020-06-13] MEDS: LISINOPRIL 20 MG TABLET PO SCH (10:37)
[2020-06-13] MEDS: BuPROPion HCL XL 150 MG ER TABLET PO SCH (10:37)
[2020-06-13] MEDS: AmLODIPine BESYLATE 10 MG TABLET PO SCH (10:37)
[2020-06-13 17:30] VITALS: BP 126/76
[2020-06-13] MEDS: MELATONIN 3 MG TABLET PO SCH (21:30)
[2020-06-14 00:17] VITALS: BP 123/74
[2020-06-14] MEDS: CARVEDILOL 3.125 MG TABLET PO SCH ×2 (07:09→16:42)
[2020-06-14] MEDS: PANTOPRAZOLE SODIUM 40 MG DR TABLET PO SCH (07:09)
[2020-06-14 08:31] VITALS: BP 127/79
[2020-06-14] MEDS: ATORVASTATIN CALCIUM 10 MG TABLET PO SCH (09:28)
[2020-06-14] MEDS: AmLODIPine BESYLATE 10 MG TABLET PO SCH (09:28)
[2020-06-14] MEDS: BuPROPion HCL XL 150 MG ER TABLET PO SCH (09:29)
[2020-06-14] MEDS: LISINOPRIL 20 MG TABLET PO SCH (09:29)
[2020-06-14 16:28] VITALS: BP 139/81
[2020-06-14] MEDS: MELATONIN 3 MG TABLET PO SCH (21:02)
[2020-06-14] MEDS: ACETAMINOPHEN 325 MG TABLET PO PRN (22:10)
[2020-06-15 04:55] VITALS: BP 119/72
[2020-06-15] MEDS: PANTOPRAZOLE SODIUM 40 MG DR TABLET PO SCH (06:24)
[2020-06-15] MEDS: CARVEDILOL 3.125 MG TABLET PO SCH ×2 (06:53→16:28)
[2020-06-15 08:23] VITALS: BP 155/95
[2020-06-15] MEDS: AmLODIPine BESYLATE 10 MG TABLET PO SCH (09:17)
[2020-06-15] MEDS: LISINOPRIL 20 MG TABLET PO SCH (09:17)
[2020-06-15] MEDS: ATORVASTATIN CALCIUM 10 MG TABLET PO SCH (09:17)
[2020-06-15] MEDS: BuPROPion HCL XL 150 MG ER TABLET PO SCH (09:17)
[2020-06-15] MEDS: ACETAMINOPHEN 325 MG TABLET PO PRN ×2 (10:52→20:50)
[2020-06-15 10:53] VITALS: BP 149/90
[2020-06-15 13:48] VITALS: BP 120/79
[2020-06-15 16:22] VITALS: BP 126/84
[2020-06-15] MEDS: MELATONIN 3 MG TABLET PO SCH (20:59)
[2020-06-16 01:51] VITALS: BP 131/72
[2020-06-16] MEDS: PANTOPRAZOLE SODIUM 40 MG DR TABLET PO SCH (06:20)
[2020-06-16] MEDS: CARVEDILOL 3.125 MG TABLET PO SCH ×2 (06:20→16:31)
[2020-06-16 08:20] VITALS: BP 148/89
[2020-06-16] MEDS: LISINOPRIL 20 MG TABLET PO SCH (08:56)
[2020-06-16] MEDS: AmLODIPine BESYLATE 10 MG TABLET PO SCH (08:56)
[2020-06-16] MEDS: ATORVASTATIN CALCIUM 10 MG TABLET PO SCH (08:56)
[2020-06-16] MEDS: BuPROPion HCL XL 150 MG ER TABLET PO SCH (08:56)
[2020-06-16 16:26] VITALS: BP 111/69
[2020-06-16] MEDS: MELATONIN 3 MG TABLET PO SCH (21:12)
[2020-06-17 00:12] VITALS: BP 136/82
[2020-06-17] MEDS: PANTOPRAZOLE SODIUM 40 MG DR TABLET PO SCH (06:14)
[2020-06-17] MEDS: CARVEDILOL 3.125 MG TABLET PO SCH ×2 (06:14→16:31)
[2020-06-17] MEDS: LISINOPRIL 20 MG TABLET PO SCH (08:54)
[2020-06-17] MEDS: AmLODIPine BESYLATE 10 MG TABLET PO SCH (08:54)
[2020-06-17] MEDS: ATORVASTATIN CALCIUM 10 MG TABLET PO SCH (08:54)
[2020-06-17] MEDS: BuPROPion HCL XL 150 MG ER TABLET PO SCH (08:54)
[2020-06-17 16:19] VITALS: BP 152/82
[2020-06-17] MEDS: MELATONIN 3 MG TABLET PO SCH (21:06)
[2020-06-18 00:36] VITALS: BP 114/68
[2020-06-18] MEDS: PANTOPRAZOLE SODIUM 40 MG DR TABLET PO SCH (06:29)
[2020-06-18] MEDS: CARVEDILOL 3.125 MG TABLET PO SCH ×2 (06:29→17:58)
[2020-06-18 08:28] VITALS: BP 138/79
[2020-06-18] MEDS: ATORVASTATIN CALCIUM 10 MG TABLET PO SCH (08:38)
[2020-06-18] MEDS: BuPROPion HCL XL 150 MG ER TABLET PO SCH (08:38)
[2020-06-18] MEDS: AmLODIPine BESYLATE 10 MG TABLET PO SCH (08:38)
[2020-06-18] MEDS: LISINOPRIL 20 MG TABLET PO SCH (08:38)
[2020-06-18 16:27] VITALS: BP 156/95
[2020-06-18] MEDS: MELATONIN 3 MG TABLET PO SCH (21:56)
[2020-06-19 06:12] VITALS: BP 122/73
[2020-06-19] MEDS: CARVEDILOL 3.125 MG TABLET PO SCH ×2 (06:38→17:03)
[2020-06-19] MEDS: PANTOPRAZOLE SODIUM 40 MG DR TABLET PO SCH (06:38)
[2020-06-19 08:39] VITALS: BP 147/86
[2020-06-19] MEDS: ATORVASTATIN CALCIUM 10 MG TABLET PO SCH (10:16)
[2020-06-19] MEDS: AmLODIPine BESYLATE 10 MG TABLET PO SCH (10:16)
[2020-06-19] MEDS: LISINOPRIL 20 MG TABLET PO SCH (10:16)
[2020-06-19] MEDS: BuPROPion HCL XL 150 MG ER TABLET PO SCH (10:16)
[2020-06-19 16:12] VITALS: BP 105/96
[2020-06-19 16:52] VITALS: BP 112/82
[2020-06-19] MEDS: MELATONIN 3 MG TABLET PO SCH (21:02)
[2020-06-20 00:21] VITALS: BP 142/85
[2020-06-20] MEDS: CARVEDILOL 3.125 MG TABLET PO SCH ×2 (06:15→16:40)
[2020-06-20] MEDS: PANTOPRAZOLE SODIUM 40 MG DR TABLET PO SCH (06:15)
[2020-06-20 08:21] VITALS: BP 137/84
[2020-06-20] MEDS: BuPROPion HCL XL 150 MG ER TABLET PO SCH (08:30)
[2020-06-20] MEDS: AmLODIPine BESYLATE 10 MG TABLET PO SCH (08:30)
[2020-06-20] MEDS: ATORVASTATIN CALCIUM 10 MG TABLET PO SCH (08:30)
[2020-06-20] MEDS: LISINOPRIL 20 MG TABLET PO SCH (08:30)
[2020-06-20 16:08] VITALS: BP 139/79
[2020-06-20] MEDS: MELATONIN 3 MG TABLET PO SCH (21:01)
[2020-06-21 01:01] VITALS: BP 131/83
[2020-06-21] MEDS: PANTOPRAZOLE SODIUM 40 MG DR TABLET PO SCH (06:30)
[2020-06-21] MEDS: CARVEDILOL 3.125 MG TABLET PO SCH ×2 (06:30→17:10)
[2020-06-21 08:34] VITALS: BP 111/79
[2020-06-21] MEDS: AmLODIPine BESYLATE 10 MG TABLET PO SCH (09:12)
[2020-06-21] MEDS: LISINOPRIL 20 MG TABLET PO SCH (09:12)
[2020-06-21] MEDS: BuPROPion HCL XL 150 MG ER TABLET PO SCH (09:12)
[2020-06-21] MEDS: ATORVASTATIN CALCIUM 10 MG TABLET PO SCH (09:12)
[2020-06-21 16:32] VITALS: BP 151/84
[2020-06-21 18:00] VITALS: BP 105/58
[2020-06-21 18:57] LABS: COVID AG,FIA SOURCE NASAL SWAB
[2020-06-21] MEDS: MELATONIN 3 MG TABLET PO SCH (21:49)
[2020-06-22] VITALS: BP 121/71
[2020-06-22] MEDS: ACETAMINOPHEN 325 MG TABLET PO PRN ×2 (00:05→14:47)
[2020-06-22] MEDS: PANTOPRAZOLE SODIUM 40 MG DR TABLET PO SCH (06:30)
[2020-06-22] MEDS: CARVEDILOL 3.125 MG TABLET PO SCH ×2 (06:30→16:34)
[2020-06-22 08:09] VITALS: BP 124/64
[2020-06-22] MEDS: BuPROPion HCL XL 150 MG ER TABLET PO SCH (11:44)
[2020-06-22] MEDS: AmLODIPine BESYLATE 10 MG TABLET PO SCH (11:44)
[2020-06-22] MEDS: LISINOPRIL 20 MG TABLET PO SCH (11:45)
[2020-06-22] MEDS: ATORVASTATIN CALCIUM 10 MG TABLET PO SCH (11:46)
[2020-06-22 16:11] VITALS: BP 117/66
[2020-06-22] MEDS: MELATONIN 3 MG TABLET PO SCH (21:08)
[2020-06-23 04:49] VITALS: BP 119/82
[2020-06-23] MEDS: PANTOPRAZOLE SODIUM 40 MG DR TABLET PO SCH (06:47)
[2020-06-23] MEDS: CARVEDILOL 3.125 MG TABLET PO SCH ×2 (06:47→16:24)
[2020-06-23 08:20] VITALS: BP 143/88
[2020-06-23] MEDS: ATORVASTATIN CALCIUM 10 MG TABLET PO SCH (09:25)
[2020-06-23] MEDS: AmLODIPine BESYLATE 10 MG TABLET PO SCH (09:26)
[2020-06-23] MEDS: LISINOPRIL 20 MG TABLET PO SCH (09:26)
[2020-06-23] MEDS: BuPROPion HCL XL 150 MG ER TABLET PO SCH (09:26)
[2020-06-23] MEDS: ACETAMINOPHEN 325 MG TABLET PO PRN (16:29)
[2020-06-23 16:50] VITALS: BP 130/86
[2020-06-23] MEDS: MELATONIN 3 MG TABLET PO SCH (21:20)
[2020-06-24 01:28] VITALS: BP 149/73
[2020-06-24] MEDS: CARVEDILOL 3.125 MG TABLET PO SCH ×2 (07:03→16:50)
[2020-06-24] MEDS: PANTOPRAZOLE SODIUM 40 MG DR TABLET PO SCH (07:03)
[2020-06-24 08:14] VITALS: BP 130/83
[2020-06-24] MEDS: BuPROPion HCL XL 150 MG ER TABLET PO SCH (08:28)
[2020-06-24] MEDS: AmLODIPine BESYLATE 10 MG TABLET PO SCH (08:28)
[2020-06-24] MEDS: ATORVASTATIN CALCIUM 10 MG TABLET PO SCH (08:28)
[2020-06-24] MEDS: LISINOPRIL 20 MG TABLET PO SCH (08:28)
[2020-06-24 20:23] VITALS: BP 112/70
[2020-06-24] MEDS: MELATONIN 3 MG TABLET PO SCH (21:18)
[2020-06-25 04:11] VITALS: BP 138/85
[2020-06-25] MEDS: PANTOPRAZOLE SODIUM 40 MG DR TABLET PO SCH (06:27)
[2020-06-25] MEDS: CARVEDILOL 3.125 MG TABLET PO SCH ×2 (06:27→16:44)
[2020-06-25 08:23] VITALS: BP 136/81
[2020-06-25] MEDS: AmLODIPine BESYLATE 10 MG TABLET PO SCH (08:56)
[2020-06-25] MEDS: ATORVASTATIN CALCIUM 10 MG TABLET PO SCH (08:56)
[2020-06-25] MEDS: LISINOPRIL 20 MG TABLET PO SCH (08:56)
[2020-06-25] MEDS: BuPROPion HCL XL 150 MG ER TABLET PO SCH (08:56)
[2020-06-25 16:43] VITALS: BP 125/73
[2020-06-25] MEDS: MELATONIN 3 MG TABLET PO SCH (21:01)
[2020-06-26 00:51] VITALS: BP 138/72
[2020-06-26] MEDS: PANTOPRAZOLE SODIUM 40 MG DR TABLET PO SCH (06:25)
[2020-06-26] MEDS: CARVEDILOL 3.125 MG TABLET PO SCH ×2 (06:26→17:13)
[2020-06-26 08:29] VITALS: BP 155/88
[2020-06-26] MEDS: ATORVASTATIN CALCIUM 10 MG TABLET PO SCH (09:41)
[2020-06-26] MEDS: AmLODIPine BESYLATE 10 MG TABLET PO SCH (09:41)
[2020-06-26] MEDS: LISINOPRIL 20 MG TABLET PO SCH (09:41)
[2020-06-26] MEDS: BuPROPion HCL XL 150 MG ER TABLET PO SCH (09:41)
[2020-06-26 16:30] VITALS: BP 101/58
[2020-06-26] MEDS: MELATONIN 3 MG TABLET PO SCH (21:13)
[2020-06-27 01:04] VITALS: BP 131/68
[2020-06-27] MEDS: PANTOPRAZOLE SODIUM 40 MG DR TABLET PO SCH (06:42)
[2020-06-27] MEDS: CARVEDILOL 3.125 MG TABLET PO SCH ×2 (06:42→16:52)
[2020-06-27 08:32] VITALS: BP 148/82
[2020-06-27] MEDS: BuPROPion HCL XL 150 MG ER TABLET PO SCH (08:59)
[2020-06-27] MEDS: LISINOPRIL 20 MG TABLET PO SCH (08:59)
[2020-06-27] MEDS: ATORVASTATIN CALCIUM 10 MG TABLET PO SCH (08:59)
[2020-06-27] MEDS: AmLODIPine BESYLATE 10 MG TABLET PO SCH (08:59)
[2020-06-27] MEDS ORDERED: TERBINAFINE HCL 1% 30 GM CREAM TP SCH (09:30)
[2020-06-27 16:23] VITALS: BP 118/72
[2020-06-27] MEDS: TERBINAFINE HCL 1% 30 GM CREAM TP SCH (16:52)
[2020-06-27] MEDS: ACETAMINOPHEN 325 MG TABLET PO PRN (21:22)
[2020-06-27] MEDS: MELATONIN 3 MG TABLET PO SCH (21:22)
[2020-06-28 01:15] VITALS: BP 135/77
[2020-06-28] MEDS: PANTOPRAZOLE SODIUM 40 MG DR TABLET PO SCH (06:36)
[2020-06-28] MEDS: CARVEDILOL 3.125 MG TABLET PO SCH ×2 (06:36→16:41)
[2020-06-28 08:13] VITALS: BP 140/85
[2020-06-28] MEDS: ATORVASTATIN CALCIUM 10 MG TABLET PO SCH (09:45)
[2020-06-28] MEDS: BuPROPion HCL XL 150 MG ER TABLET PO SCH (09:45)
[2020-06-28] MEDS: LISINOPRIL 20 MG TABLET PO SCH (09:45)
[2020-06-28] MEDS: AmLODIPine BESYLATE 10 MG TABLET PO SCH (09:45)
[2020-06-28] MEDS: TERBINAFINE HCL 1% 30 GM CREAM TP SCH ×2 (09:46→16:41)
[2020-06-28 16:30] VITALS: BP 132/83
[2020-06-28] MEDS: MELATONIN 3 MG TABLET PO SCH (21:12)
[2020-06-29 02:56] VITALS: BP 129/88
[2020-06-29] MEDS: PANTOPRAZOLE SODIUM 40 MG DR TABLET PO SCH (06:26)
[2020-06-29] MEDS: CARVEDILOL 3.125 MG TABLET PO SCH ×2 (06:26→16:14)
[2020-06-29 08:58] VITALS: BP 135/82
[2020-06-29] MEDS: AmLODIPine BESYLATE 10 MG TABLET PO SCH (09:10)
[2020-06-29] MEDS: ATORVASTATIN CALCIUM 10 MG TABLET PO SCH (09:10)
[2020-06-29] MEDS: LISINOPRIL 20 MG TABLET PO SCH (09:11)
[2020-06-29] MEDS: BuPROPion HCL XL 150 MG ER TABLET PO SCH (09:11)
[2020-06-29] MEDS: TERBINAFINE HCL 1% 30 GM CREAM TP SCH ×2 (09:12→16:50)
[2020-06-29] MEDS ORDERED: CARV3 PO ×2 (15:53→15:54)
== END 2020-06-29 18:00 | DRG 885 ==
LOC: EMS 16:06 → B2X 20:03
PROVIDERS: ADMIT Psychiatry & Neurology Psychiatry; ATTEND Psychiatry & Neurology Psychiatry
DX: F20.0 Paranoid schizophrenia (principal); E78.5 Hyperlipidemia, unspecified; I10 Essential (primary) hypertension; J45.909 Unspecified asthma, uncomplicated; K21.9 Gastro-esophageal reflux disease without esophagitis; G44.209 Tension-type headache, unspecified, not intractable; F99 Mental disorder, not otherwise specified; K59.00 Constipation, unspecified; Z20.828 Contact with and (suspected) exposure to other viral communicable diseases; Z28.21 Immunization not carried out because of patient refusal; Z79.899 Other long term (current) drug therapy
CPT/HCPCS: 87081; 87426; G0480